=== PATIENT | male | born 1985 | race Caucasian/White ===

== ENCOUNTER 2016-12-29 16:23 | Emergency (ER) | payer BC, OTHER ==
[2016-12-29 16:54] VITALS: BP 133/67; PULSE 65; TEMP 98.3; BMI 24.0
[2016-12-29] MEDS ORDERED: metroNIDAZOLE 250 MG TABLET PO ONE (16:57)
[2016-12-29] MEDS ORDERED: AZITHROMYCIN 1 GM PACKET PO ONE (16:57)
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
[2016-12-29] MEDS ORDERED: metroNIDAZOLE 250 MG TABLET ONE (17:15)
[2016-12-29] MEDS ORDERED: AZITHROMYCIN 250 MG TABLET (FP) ONE (17:15)
[2016-12-29 19:52] LABS: HIV 1 & 2 AB NEGATIVE; HIV 1 AGp24 NEGATIVE
== END 2016-12-29 18:37 | disposition home or self-care (01) ==
LOC: FER 16:23
DX: Z11.3 Encounter for screening for infections with a predominantly sexual mode of transmission (principal)
CPT/HCPCS: 36415; 87389; 87491; 87591; 99281-25

== ENCOUNTER 2017-06-22 21:55 | Emergency (ER) | payer BC, OTHER ==
[2017-06-22 22:08] VITALS: BP 121/97; PULSE 71; TEMP 98.1; BMI 23.6
[2017-06-22] MEDS ORDERED: IBUPROFEN 600 MG TABLET (FP) PO ONE ×2 (22:22→22:25)
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
== END 2017-06-22 22:43 | disposition home or self-care (01) ==
LOC: JER 21:55
DX: S46.812A Strain of other muscles, fascia and tendons at shoulder and upper arm level, left arm, initial encounter (principal); S69.82XA Other specified injuries of left wrist, hand and finger(s), initial encounter; X50.1XXA Overexertion from prolonged static or awkward postures, initial encounter; Y35.811A Legal intervention involving manhandling, law enforcement official injured, initial encounter; Y93.89 Activity, other specified; Y92.89 Other specified places as the place of occurrence of the external cause; Y99.0 Civilian activity done for income or pay
CPT/HCPCS: 99281-25

== ENCOUNTER 2017-09-28 22:52 | Emergency (ER) | payer OTHER ==
[2017-09-28 22:56] VITALS: BP 134/76; PULSE 83; TEMP 98.1; BMI 23.6
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
== END 2017-09-28 23:50 | disposition home or self-care (01) ==
LOC: JERFT 22:52
DX: Z77.21 Contact with and (suspected) exposure to potentially hazardous body fluids (principal); S00.511A Abrasion of lip, initial encounter; Y35.811A Legal intervention involving manhandling, law enforcement official injured, initial encounter; Y93.89 Activity, other specified; Y92.89 Other specified places as the place of occurrence of the external cause; Y99.0 Civilian activity done for income or pay
CPT/HCPCS: 99281-25

== ENCOUNTER 2019-01-25 14:13 | Emergency (ER) | payer OTHER, BC ==
[2019-01-25 14:31] VITALS: BP 137/8; PULSE 90; TEMP 98.1; BMI 23.6
--- NOTE | 2019-01-25 15:10 | PDOC ---
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 Patient denies any fall or twisting her ankle. Denies any pain or swelling to ankle. Denies any swelling to foot. Denies any previous injury to left foot. Timing/Duration: 1-3 hours Past History - Past Medical History Allergies/Adverse Reactions: Allergies Allergy/AdvReac Type Severity Reaction Status Date / Time No Known Allergies Allergy Verified 06/22/17 22:01 Home Medications: Ambulatory Orders Ibuprofen 800 mg PO Q8H PRN #20 tablet 01/25/19 COPD: No - Immunization History Td Vaccination: Yes TDAP Vaccination: Yes - Suicide/Smoking/Psychosocial Hx Smoking Status: No Smoking History: Never smoked Years of Tobacco Use: 0 Have you smoked in the past 12 months: No Number of Cigarettes Smoked Daily: 0 Information on smoking cessation initiated: No Hx Alcohol Use: No Drug/Substance Use Hx: No Substance Use Type: None Review of Systems - Review of Systems Able to Perform ROS?: Yes Is the patient limited Thai proficient: No Constitutional: No: Weakness HEENTM: No: Symptoms Reported Respiratory: No: Symptoms reported Cardiac (ROS): No: Symptoms Reported ABD/GI: No: Symptoms Reported : No: Symptoms Reported Musculoskeletal: Yes: See HPI, Muscle Pain (left mid-foot pain). No: Joint Swelling, Muscle Weakness, Joint Stiffness Neurological: No: Numbness, Paresthesia, Tingling, Dizziness All Other Systems: Reviewed and Negative *Physical Exam - Vital Signs Last Vital Signs Temp Pulse Resp BP Pulse Ox 98.1 F 90 20 137/8 L 97 01/25/19 14:27 01/25/19 14:27 01/25/19 14:27 01/25/19 14:27 01/25/19 14:27 - Physical Exam Comments: 01/25/19 15:06 GENERAL: Well developed, well nourished. Awake and alert. No acute distress. CARDIOVASCULAR: Regular rate and rhythm. No murmurs, rubs, or gallops. PULMONARY: No evidence of respiratory distress. MUSCULOSKELETAL : mild tenderness over dorsal aspect of left midfoot. No swelling to foot or ankle. Increase subjective pain with eversion of left foot. No bony deformities EXTREMITIES: No cyanosis. No clubbing. No edema. No calf tenderness. SKIN: Warm and dry. Normal capillary refill. No rashes. No jaundice. NEUROLOGICAL: Alert, awake, appropriate. No motor deficits in the lower extremities. Gait is normal without ataxia. PSYCHIATRIC: Cooperative. Good eye contact. Appropriate mood and affect. General Appearance: Yes: Nourished, Appropriately Dressed. 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 Denies any fall or injury to ankle. Exam significant for mild tenderness to left midfoot swelling, ecchymosis or redness. Symptoms likely for sprain versus stress fracture . X-ray of left foot ordered to rule out acute fracture. 01/25/19 15:13 X-ray of left foot shows no acute fracture or dislocation. No soft tissue swelling seen on x-ray. Patient is stable for outpatient management of foot sprain with podiatry follow-up as needed *DC/Admit/Observation/Transfer Diagnosis at time of Disposition: Sprain of foot, left Qualifiers: Encounter type: initial encounter Qualified Code(s): S93.602A - Unspecified sprain of left foot, initial encounter - Discharge Dispostion Disposition: HOME Condition at time of disposition: Stable Decision to Admit order: No - Prescriptions Prescriptions: Ibuprofen 800 mg PO Q8H PRN #20 tablet PRN Reason: pain - Referrals - Patient Instructions Printed Discharge Instructions: DI for Foot Sprain Additional Instructions: X-ray shows no fracture or foreign. Your symptoms likely from sprain. Take prescribed Motrin as needed for pain. Rest for the next 24 hours. Apply heat compresses to foot as needed for pain. - Post Discharge Activity
== END 2019-01-25 15:18 | disposition home or self-care (01) ==
LOC: JERFT 14:13
DX: S93.602A Unspecified sprain of left foot, initial encounter (principal); X50.0XXA Overexertion from strenuous movement or load, initial encounter; Y93.02 Activity, running; Y35.891A Legal intervention involving other specified means, law enforcement official injured, initial encounter; Y92.89 Other specified places as the place of occurrence of the external cause; Y99.0 Civilian activity done for income or pay
CPT/HCPCS: 73630-TC-LT; 99281-25